=== PATIENT | female | born 1965 | race Caucasian/White ===

== ENCOUNTER 2018-10-16 00:35 | Emergency (ER) | payer SELFPAY ==
[~2018-10-16] VITALS: Ht 165.1 cm; Wt 79.0 kg
[2018-10-16] MEDS ORDERED: ONDANSETRON HCL 4MG/2ML INJ IV STA (02:44)
[2018-10-16] MEDS ORDERED: FAMOTIDINE 20MG/2ML VIAL IV STA (02:44)
[2018-10-16] MEDS ORDERED: SODIUM CHLORIDE 0.9% 1,000 ML IV ONE (02:44)
[2018-10-16] MEDS ORDERED: MORPHINE SULFATE 4 MG/ML CPJ (NOT FOR IM USE) IV STA (02:44)
[2018-10-16 02:56] LABS: CHLORIDE 111 mEq/L (98-107)
[2018-10-16 02:58] LABS: CLARITY URINE TURBID (CLEAR); COLOR URINE YELLOW (YELLOW); KETONES URINE NEGATIVE (NEGATIVE); LEUKOCYTE ESTERASE URINE TRACE (NEGATIVE); NITRITE URINE NEGATIVE (NEGATIVE); OCCULT BLOOD URINE NEGATIVE (NEGATIVE); PH URINE 7.5 (4.5-8.0); PROTEIN URINE NEGATIVE (NEGATIVE); SPECIFIC GRAVITY URINE 1.019 (1.005-1.030); UROBILINOGEN URINE 0.2 E.U./dL (0.2-1.0)
[2018-10-16 03:01] LABS: BASOPHILS % 0.5 % (0.0-2.0); EOSINOPHILS % 1.8 % (0.0-5.0); HEMATOCRIT. 40.2 % (36.0-48.0); HEMOGLOBIN. 13.6 g/dL (12.0-16.0); LYMPHOCYTES % 43.5 % (20.0-50.0); MEAN CORPUSCULAR HEMOGLOBIN 32.6 pg (28.0-32.0); MEAN CORPUSCULAR VOLUME 96.5 fL (81.0-99.0); MEAN PLATELET VOLUME 9.9 fl (7.4-10.4); NEUTROPHILS % 47.2 % (40.0-76.0); PLATELET 214 x1000/uL (130-400); RED BLOOD CELL COUNT 4.17 mill/uL (4.2-5.4); RED CELL DISTRIBUTION WIDTH 13.4 % (11.6-14.6)
[2018-10-16] MEDS ORDERED: IOHEXOL-300 100 ML BOTTLE ONE (06:21)
[2018-10-16 08:38] VITALS: BP 101/61
== END 2018-10-16 08:39 | disposition home or self-care (01) ==
LOC: ER 00:35
DX: R11.10 Vomiting, unspecified (principal); R07.89 Other chest pain; F17.210 Nicotine dependence, cigarettes, uncomplicated
CPT/HCPCS: 36415; 71045; 74177; 76705; 80053; 81003; 81025; 83690; 84484; 85025; 87086; 93005; 96361; 96374; 96375; 99284; J2270; J2405; J3490; J7030; Q9967; Z7610